=== PATIENT | female | born 1995 | race Caucasian/White ===

== ENCOUNTER 2017-09-08 22:35 | Emergency (ER) | payer OTHER ==
[~2017-09-08] VITALS: Ht 175.3 cm; Wt 62.0 kg
[2017-09-08 22:55] LABS: HEMATOCRIT 38.8 % (36.0-46.0); HEMOGLOBIN 13.3 G/DL (11.9-15.5); MCHC 34.3 G/DL (30.0-36.0); MCV 90.4 FL (83-99); PLATELET COUNT 198 K/uL (156-360); RBC DIS.WIDTH-SD 39.5 % (39-53); RED BLOOD COUNT 4.29 M/uL (3.80-5.20); WHITE BLOOD COUNT 14.7 K/uL (4.1-10.2)
[2017-09-08 23:04] LABS: ALBUMIN 4.3 g/dL (3.2-4.8)
[2017-09-08 23:05] LABS: CHLORIDE 103 mEq/L (99-109); POTASSIUM 3.7 mEq/L (3.7-5.4); SODIUM 139 mEq/L (136-147)
[2017-09-08 23:07] LABS: GLUCOSE 100 mg/dL (70-99); TOTAL PROTEIN 7.5 g/dL (6.4-8.3)
[2017-09-08 23:09] LABS: TOTAL BILIRUBIN 0.8 mg/dL (0.0-1.0)
[2017-09-08 23:12] LABS: ALKALINE PHOSPHATASE 59 IU/L (3-129); AST (GOT) 15 IU/L (2-34); CREATININE 0.9 mg/dL (0.6-1.3); UREA NITROGEN (BUN) 13 mg/dL (9-23)
[2017-09-08 23:14] LABS: ALT (GPT) 10 IU/L (3-49); LIPASE 17 U/L (1.0-51.0)
[2017-09-08 23:15] LABS: BASOPHIL (%) 0.2 % (0-1); EOSINOPHIL (%) 0.6 % (0-5); EOSINOPHIL COUNT 0.1 K/uL (0-0.3); IMMATURE GRANULOCYTE (%) 0.3 % (0.0-0.7); LYMPHOCYTE (%) 6.8 % (15-42); MONOCYTE (%) 7.9 % (3-12); MONOCYTE COUNT 1.2 K/uL (0-0.8); NEUTROPHIL (%) 84.2 % (45-76); NEUTROPHIL COUNT 12.4 K/uL (1.8-6.4)
[2017-09-08 23:16] LABS: APPEARANCE CLOUDY ((CLEAR)); BILIRUBIN NEGATIVE; BLOOD SMALL; COLOR YELLOW ((YELLOW)); GLUCOSE (STRIP) NEGATIVE; KETONES 20; LEUKOCYTES LARGE; NITRITE NEGATIVE; PROTEIN (STRIP) 100; UROBILINOGEN 0.2 MG/DL (0.2-1.0)
[2017-09-08 23:19] LABS: GFR ESTIMATE (CALCULATED) > 59 mL/min/
[2017-09-08 23:20] LABS: QUANTITATIVE HCG < 4.0 MIU/ML
[2017-09-08 23:43] LABS: BACTERIA 2+ /HPF; EPITHELIAL CELLS RARE /HPF; MUCUS NONE SEEN /LPF; RED BLOOD CELLS 0-5 /HPF (0-5); UCUL ADDED? YES; WHITE BLOOD CELLS TNTC /HPF (0-5)
[2017-09-09] MEDS ORDERED: ZOFRAN ODT8 MG PO (01:23)
[2017-09-09] MEDS ORDERED: BENTYL20 MG PO (01:23)
[2017-09-09] MEDS ORDERED: KEFLEX500 MG PO (01:23)
[2017-09-09 01:35] VITALS: BP 122/78
== END 2017-09-09 01:36 | disposition home or self-care (01) ==
LOC: EME 22:35
DX: N12 Tubulo-interstitial nephritis, not specified as acute or chronic (principal); N30.00 Acute cystitis without hematuria; K52.9 Noninfective gastroenteritis and colitis, unspecified; R03.0 Elevated blood-pressure reading, without diagnosis of hypertension; Z87.440 Personal history of urinary (tract) infections; Z87.891 Personal history of nicotine dependence; F41.9 Anxiety disorder, unspecified
CPT/HCPCS: 74177; 80053; 81003; 83605; 83690; 84702; 85025; 85027; 87040; 87086; 99281; 99284; J0696; J1885; J2405; J7030